=== PATIENT | female | born 1990 | race Two or more races ===

== ENCOUNTER → 2016-09-27 | Outpatient (CLI) | payer OTHER ==
--- NOTE | 2016-09-27 11:43 | REP ---
Obstetric sonography: History: Supervision of for anatomy. Findings: Scanning through the gravid uterus demonstrates a viable single intrauterine gestation in a breech lie. motion is observed and heart rate is recorded at 144 beats per minute. A posterior grade 0 placenta is seen without evidence of previa or abruption. Amniotic fluid is subjectively normal. Closed cervical length is 3.9 cm, measured transabdominally. No extrauterine abnormalities observed. There has been appropriate interval growth. No anomaly is seen. The following anatomic structures are identified and felt to be sonographically unremarkable: cranium, choroid plexus, cavum, cerebellar and posterior fossa, face and profile, lungs, four-chamber heart with left and right ventricular outflow tract views, diaphragm, left-sided stomach, abdominal wall cord insertion, three-vessel umbilical cord, kidneys and bladder, spine, upper and lower extremities. Biometry: BPD 4.1 cm = 18 weeks 2 days Head circumference 15.7 cm = 18 weeks 4 days Abdominal circumference 13.7 cm = 19 weeks 1 day Femur length 3.0 cm = 19 weeks 3 days Humeral length 3.0 cm = 20 weeks 0 days HC/AC ratio normal 1.14 cephalic index normal 0.70 estimated weight 277 grams, 0 pounds 9 ounces, 28th percentile for 19 weeks 5 days. Impression: Viable single intrauterine gestation at 19 weeks 1 day by today's composite sonographic criteria. Expected gestational age estimate based on prior sonography is 19 weeks 3 days. GALEN by prior sonography February 18, 2017. Signed by Andrew Glass MD 09/27/2016 01:37 P
== END ==
LOC: M RAD 09:51
PROVIDERS: ATTEND Nurse Practitioner Women's Health
DX: Z36 Encounter for antenatal screening of mother (principal); Z3A.19 19 weeks gestation of pregnancy

== ENCOUNTER → 2016-12-09 | Outpatient (CLI) | payer OTHER | LOC: M LAB 07:38 | DX: O99.810 Abnormal glucose complicating pregnancy (principal); Z3A.00 Weeks of gestation of pregnancy not specified ==

== ENCOUNTER → 2017-02-08 | Outpatient (CLI) | payer OTHER ==
--- NOTE | 2017-02-08 19:00 | REPUSA ---
Clinical history: decreased movement. Findings: Real-time transabdominal ultrasound imaging was performed for this biophysical profile exam ination. There is a single live intrauterine demonstrated, measuring approximately 38 weeks 4 days heart rate measures 160 bpm. Amniotic fluid index measures 12.9 cm. The cervix measures 2.6 cm in length and is closed.Normal breathing movements, body movements, and ton e are appreciated. Umbilical artery systolic/diastolic ratio measures 2.20. Resistive index measures 0.55. The placenta is at the left lateral aspect, without evidence of placenta previa or abruption. The nuchal cord was seen and is a normal position. Limited visualized anatomy is unremarkable. There is no evidence of free fluid. Impression: Biophysical profile measures 8/8, and is within normal limits.
== END ==
LOC: M RAD 17:13
PROVIDERS: ATTEND Nurse Practitioner Women's Health
DX: O36.8130 Decreased fetal movements, third trimester, not applicable or unspecified (principal); Z3A.38 38 weeks gestation of pregnancy

== ENCOUNTER 2017-04-26 12:14 | Emergency (ER) | payer OTHER ==
[~2017-04-26] VITALS: Ht 154.9 cm; Wt 76.1 kg
[2017-04-26 12:15] VITALS: BP 123/75
[2017-04-26] MEDS ORDERED: IBUP-1022 PO (12:32)
[2017-04-26] MEDS ORDERED: DICL75TA PO (14:08)
== END 2017-04-26 14:27 | disposition home or self-care (01) ==
LOC: M ED 12:14
DX: G56.01 Carpal tunnel syndrome, right upper limb (principal); F17.200 Nicotine dependence, unspecified, uncomplicated

== ENCOUNTER → 2017-04-29 | Outpatient (REF) | payer OTHER ==
[~2017-04-29] MED LIST: DICL75TA PO; IBUP-1022 PO
[2017-04-29 12:33] LABS: FREE T4 0.95 NG/DL (0.76-1.46)
== END ==
LOC: M LABDRAW1 11:24
PROVIDERS: ATTEND Orthopaedic Surgery
DX: G56.01 Carpal tunnel syndrome, right upper limb (principal)

== ENCOUNTER 2017-10-24 19:55 | Emergency (ER) | payer SELFPAY, OTHER ==
[2017-10-24 22:13] LABS: BASO % 0.5 % (0.0-1.0); EOS # 0.2 10^3/uL (0.0-0.50); EOS % 3.2 % (0.0-3.0); HEMATOCRIT 41.1 % (36.0-47.0); HEMOGLOBIN 14.1 g/dl (12.0-16.0); IMMATURE GRANULOCYTE % 0.1 % (0-3.0); LYMPH # 2.4 10^3/uL (1.5-6.5); LYMPH % 31.9 % (24.0-44.0); MEAN CORPUSCULAR HEMOGLOBIN 27.3 pg (27.0-33.0); MEAN CORPUSCULAR HGB CONC 34.3 g/dl (32.0-36.5); MEAN CORPUSCULAR VOLUME 79.7 fl (80.0-96.0); MONO # 0.4 10^3/uL (0.0-0.8); MONO % 5.1 % (0.0-5.0); NEUTROPHILS # 4.5 10^3/uL (1.8-7.7); NEUTROPHILS % 59.2 % (36.0-66.0); PLATELET COUNT, AUTOMATED 278 10^3/uL (150-450); RED BLOOD COUNT 5.16 10^6/uL (4.00-5.40); WHITE BLOOD COUNT 7.6 10^3/uL (4.0-10.0)
[2017-10-24 22:18] LABS: KETONE, URINE AUTO RFX NEGATIVE (NEGATIVE); LEUKOCYTE ESTERASE UR AUTO RFX NEGATIVE (NEGATIVE); MUCUS, URINE RFX SMALL (NEGATIVE); NITRITE, URINE AUTO RFX NEGATIVE (NEGATIVE); RBC, URINE AUTO RFX 5 /HPF (0-3); SPECIFIC GRAVITY UR AUTO RFX 1.021 (1.002-1.035); SQUAM EPITHELIAL CELL UR AURFX 2 /HPF (0-6); WBC, URINE AUTO RFX 5 /HPF (0-3)
[2017-10-24 22:36] LABS: CONTROL LINE HCG INT CTR LINE PRESENT; HCG, SERUM QUALITATIVE NEGATIVE (NEGATIVE)
[2017-10-24 22:40] LABS: ALBUMIN 4.3 GM/DL (3.2-5.2); ALBUMIN/GLOBULIN RATIO 1.34 (1.00-1.93); ALKALINE PHOSPHATASE 72 U/L (45-117); ALT/SGPT 18 U/L (12-78); AMYLASE 49 U/L (25-115); ANION GAP 8 MEQ/L (8-16); AST/SGOT 17 U/L (7-37); BILIRUBIN,DIRECT < 0.1 MG/DL (0.0-0.2); BILIRUBIN,TOTAL 0.2 MG/DL (0.2-1.0); BLOOD UREA NITROGEN 8 MG/DL (7-18); CALCIUM LEVEL 8.7 MG/DL (8.5-10.1); CARBON DIOXIDE LEVEL 29 MEQ/L (21-32); CHLORIDE LEVEL 107 MEQ/L (98-107); GLOMERULAR FILTRATION RATE > 60.0 (>60); GLUCOSE, FASTING 96 MG/DL (70-100); LIPASE 159 U/L (73-393); POTASSIUM SERUM 3.6 MEQ/L (3.5-5.1); SODIUM LEVEL 144 MEQ/L (136-145); TOTAL PROTEIN 7.5 GM/DL (6.4-8.2)
[2017-10-25] MEDS: KETOROLAC 30 MG/ML VIAL (J1885) IV (01:45)
[2017-10-25 01:49] LABS: CHLAMYDIA DNA AMPLIFICATION NEGATIVE (NEGATIVE); GC DNA AMPLIFICATION NEGATIVE (NEGATIVE)
== END 2017-10-25 02:00 | disposition home or self-care (01) ==
LOC: M ED 19:55
DX: N83.202 Unspecified ovarian cyst, left side (principal); R11.2 Nausea with vomiting, unspecified; D57.3 Sickle-cell trait; F17.200 Nicotine dependence, unspecified, uncomplicated
CPT/HCPCS: J1885

== ENCOUNTER 2022-08-22 11:43 | Emergency (ER) | payer SELFPAY ==
[~2022-08-22] VITALS: Ht 152.4 cm; Wt 55.4 kg
[~2022-08-22 11:43] MED LIST changes: +AMOX500C PO; +ETON68IM; +EXCETAB32 PO; +HYDR-3715 PO; +IMIT50TA PO; +NAPR-837 PO; +REGL10TA6 PO; +ZOFR4TAB16 PO
[2022-08-22] MEDS ORDERED: NS 1,000 ML IV ONE (12:20)
[2022-08-22] MEDS ORDERED: ONDANSETRON 4MG 2ML VIAL IV ONE (12:20)
[2022-08-22] MEDS ORDERED: MORPHINE 4 MG/ML 1ML VIAL IV ONE (12:20)
[2022-08-22 12:49] LABS: BASO % 0.3 % (0.0-1.0); EOS % 0.3 % (0.0-3.0); HEMATOCRIT 35.2 % (36.0-47.0); HEMOGLOBIN 11.9 g/dl (12.0-15.5); LYMPH # 0.2 10^3/uL (1.5-5.0); LYMPH % 2.5 % (24.0-44.0); MEAN CORPUSCULAR HGB CONC 33.8 g/dl (32.0-36.5); MEAN CORPUSCULAR VOLUME 79.8 fl (80.0-96.0); MONO # 0.7 10^3/uL (0.0-0.8); NEUTROPHILS # 5.1 10^3/uL (1.5-8.5); NEUTROPHILS % 85.2 % (36.0-66.0); PLATELET COUNT, AUTOMATED 223 10^3/uL (150-450); RED BLOOD COUNT 4.41 10^6/uL (4.00-5.40)
[2022-08-22 12:52] LABS: URINE PREG TEST NEGATIVE (NEGATIVE)
[2022-08-22 13:07] LABS: LIPASE 22 U/L (12-53)
[2022-08-22 13:09] LABS: BILIRUBIN,DIRECT 0.2 MG/DL (<0.4)
[2022-08-22 13:10] LABS: ALBUMIN 4.1 G/DL (3.2-5.2); ALKALINE PHOSPHATASE 52 U/L (46-116); ALT/SGPT < 9 U/L (7.0-40); AST/SGOT 16 U/L (<34); BILIRUBIN,TOTAL 0.5 MG/DL (0.3-1.2); BLOOD UREA NITROGEN 7 MG/DL (9-23); CALCIUM LEVEL 8.7 MG/DL (8.5-10.1); CARBON DIOXIDE LEVEL 22 MMOL/L (20-31); CHLORIDE LEVEL 103 MMOL/L (98-107); CREATININE FOR GFR 0.61 MG/DL (0.55-1.30); GLOMERULAR FILTRATION RATE > 60.0 (>60); GLUCOSE, FASTING 95 MG/DL (60-100); POTASSIUM SERUM 3.7 MMOL/L (3.5-5.1); SODIUM LEVEL 138 MMOL/L (136-145); TOTAL PROTEIN 6.7 G/DL (5.7-8.2)
[2022-08-22] MEDS ORDERED: KETOROLAC 30 MG/ML 1ML VIAL IV ONE (13:25)
[2022-08-22] MEDS ORDERED: ISOVUE-370 76% 100ML VIAL As Ordered ONE (13:35)
[2022-08-22] MEDS ORDERED: cefTRIAXone SOD 1 GM in D5W MINI-BAG PLUS 50 ML IV ONE (14:45)
[2022-08-22] MEDS ORDERED: CEFD300C41 PO (17:09)
[2022-08-22 17:15] VITALS: BP 117/75
== END 2022-08-22 17:32 | disposition home or self-care (01) ==
LOC: M ED 11:43
DX: N10 Acute pyelonephritis (principal); D25.9 Leiomyoma of uterus, unspecified; K65.4 Sclerosing mesenteritis; Z87.42 Personal history of other diseases of the female genital tract; F17.200 Nicotine dependence, unspecified, uncomplicated; Z79.82 Long term (current) use of aspirin; Z79.899 Other long term (current) drug therapy
CPT/HCPCS: 74177; 76830; 76856; 80048; 80076; 81000; 81015; 83690; 84703; 85025; 87088; 87186; 93041; 93976; 96365; 96375; 99285; J0696; J1885; J2270; J2405

== ENCOUNTER 2024-02-23 14:06 | Emergency (ER) | payer SELFPAY ==
[~2024-02-23] VITALS: Ht 152.4 cm; Wt 50.0 kg
[~2024-02-23 14:06] MED LIST changes: +CEFD1CAP9 PO
[2024-02-23 15:02] LABS: BASO % 0.6 % (0.0-1.0); EOS # 0.1 10^3/uL (0.0-0.5); EOS % 1.2 % (0.0-3.0); HEMATOCRIT 35.3 % (36.0-47.0); HEMOGLOBIN 12.3 g/dl (12.0-15.5); LYMPH # 1.4 10^3/uL (1.5-5.0); LYMPH % 21.3 % (24.0-44.0); MEAN CORPUSCULAR HEMOGLOBIN 27.9 pg (27.0-33.0); MEAN CORPUSCULAR HGB CONC 34.8 g/dl (32.0-36.5); MONO # 0.5 10^3/uL (0.0-0.8); MONO % 6.8 % (2.0-8.0); NEUTROPHILS # 4.7 10^3/uL (1.5-8.5); NEUTROPHILS % 69.8 % (36.0-66.0); PLATELET COUNT, AUTOMATED 293 10^3/uL (150-450); RED BLOOD COUNT 4.41 10^6/uL (4.00-5.40); WHITE BLOOD COUNT 6.8 10^3/uL (4.0-10.0)
[2024-02-23 18:01] LABS: CK-MB VALUE MASS < 1.0 NG/ML (<3.6)
[2024-02-23 18:02] LABS: CPK CREATINE PHOSPHOKINASE 50 U/L (34-145)
[2024-02-23] MEDS ORDERED: HYDR-643 PO (18:29)
[2024-02-23] MEDS ORDERED: OMEP-312 PO (18:30)
[2024-02-23] MEDS ORDERED: PEPC1TAB5 PO (18:30)
[2024-02-23 18:52] LABS: LIPASE 30 U/L (12-53)
[2024-02-23 18:56] LABS: ALBUMIN 3.9 G/DL (3.2-5.2); ALKALINE PHOSPHATASE 43 U/L (46-116); ALT/SGPT < 9 U/L (7.0-40); AST/SGOT < 8 U/L (<34); BILIRUBIN,DIRECT 0.2 MG/DL (<0.4); BILIRUBIN,TOTAL 0.5 MG/DL (0.3-1.2); BLOOD UREA NITROGEN 9 MG/DL (9-23); CALCIUM LEVEL 8.9 MG/DL (8.5-10.1); CARBON DIOXIDE LEVEL 24 MMOL/L (20-31); CHLORIDE LEVEL 107 MMOL/L (98-107); CREATININE FOR GFR 0.58 MG/DL (0.55-1.30); GLOMERULAR FILTRATION RATE > 60.0 (>60); GLUCOSE, FASTING 83 MG/DL (60-100); POTASSIUM SERUM 3.5 MMOL/L (3.5-5.1); SODIUM LEVEL 141 MMOL/L (136-145); TOTAL PROTEIN 6.2 G/DL (5.7-8.2)
[2024-02-23 19:04] VITALS: BP 108/66; TEMP 98.1; O2SAT 100
== END 2024-02-23 19:08 | disposition home or self-care (01) ==
LOC: M ED 14:06
DX: F41.9 Anxiety disorder, unspecified (principal); K21.9 Gastro-esophageal reflux disease without esophagitis; R51.9 Headache, unspecified; F17.200 Nicotine dependence, unspecified, uncomplicated; F12.10 Cannabis abuse, uncomplicated; Z79.82 Long term (current) use of aspirin; Z79.2 Long term (current) use of antibiotics; Z79.83 Long term (current) use of bisphosphonates; Z79.899 Other long term (current) drug therapy

== ENCOUNTER 2024-11-01 18:10 | Emergency (ER) | payer OTHER, SELFPAY ==
[~2024-11-01] VITALS: Ht 152.4 cm; Wt 53.2 kg
[~2024-11-01 18:10] MED LIST changes: +HYDR-643 PO; +OMEP-312 PO; +PEPC1TAB5 PO
[2024-11-01 18:40] LABS: BASO % 0.7 % (0.0-1.0); EOS # 0.1 10^3/uL (0.0-0.5); HEMOGLOBIN 11.5 g/dl (12.0-15.5); LYMPH # 1.5 10^3/uL (1.5-5.0); LYMPH % 26.6 % (24.0-44.0); MEAN CORPUSCULAR HEMOGLOBIN 27.8 pg (27.0-33.0); MEAN CORPUSCULAR HGB CONC 34.8 g/dl (32.0-36.5); MEAN CORPUSCULAR VOLUME 79.9 fl (80.0-96.0); MONO # 0.4 10^3/uL (0.0-0.8); MONO % 6.7 % (2.0-8.0); NEUTROPHILS # 3.5 10^3/uL (1.5-8.5); NEUTROPHILS % 63.8 % (36.0-66.0); PLATELET COUNT, AUTOMATED 261 10^3/uL (150-450); RED BLOOD COUNT 4.13 10^6/uL (4.00-5.40); WHITE BLOOD COUNT 5.5 10^3/uL (4.0-10.0)
[2024-11-01 19:08] LABS: BLOOD UREA NITROGEN 8 MG/DL (9-23); CALCIUM LEVEL 8.9 MG/DL (8.5-10.1); CARBON DIOXIDE LEVEL 25 MMOL/L (20-31); CHLORIDE LEVEL 108 MMOL/L (98-107); CREATININE FOR GFR 0.62 MG/DL (0.55-1.30); GLOMERULAR FILTRATION RATE > 60.0 (>60); GLUCOSE, FASTING 105 MG/DL (60-100); POTASSIUM SERUM 3.8 MMOL/L (3.5-5.1); SODIUM LEVEL 142 MMOL/L (136-145)
[2024-11-01 19:18] LABS: AMPHETAMINES LEVEL URINE NEGATIVE (NEGATIVE); BARBITURATES URINE NEGATIVE (NEGATIVE); BENZODIAZEPINES URINE NEGATIVE (NEGATIVE); COCAINE METABOLITE URINE NEGATIVE (NEGATIVE); METHADONE URINE NEGATIVE (NEGATIVE); OPIATES URINE NEGATIVE (NEGATIVE); PHENCYCLIDINE URINE NEGATIVE (NEGATIVE)
[2024-11-01 19:19] LABS: CANNABINOIDS URINE POSITIVE (NEGATIVE)
[2024-11-01 19:48] LABS: HEMOGLOBIN A1c 5.1 % (4.0-6.0)
[2024-11-01 21:30] VITALS: BP 105/62; O2SAT 99
[2024-11-01 21:41] VITALS: TEMP 98.1
[2024-11-01 21:50] LABS: ALBUMIN 3.8 G/DL (3.2-5.2); ALKALINE PHOSPHATASE 45 U/L (35-104); ALT/SGPT 10 U/L (7.0-40); AST/SGOT 11 U/L (<34); BILIRUBIN,DIRECT < 0.1 MG/DL (<0.4); BILIRUBIN,TOTAL 0.3 MG/DL (0.3-1.2); TOTAL PROTEIN 6.5 G/DL (5.7-8.2)
== END 2024-11-01 21:55 | disposition home or self-care (01) ==
LOC: EDBD 18:10 → M ED 18:10
DX: E16.2 Hypoglycemia, unspecified (principal); K21.9 Gastro-esophageal reflux disease without esophagitis; F17.290 Nicotine dependence, other tobacco product, uncomplicated; Z79.899 Other long term (current) drug therapy

== ENCOUNTER → 2024-11-30 | Outpatient (CLI) | payer OTHER | LOC: M PLARAD 12:56 | PROVIDERS: ATTEND Physician Assistant | DX: G43.009 Migraine without aura, not intractable, without status migrainosus (principal) ==

== ENCOUNTER 2025-05-08 09:49 | Emergency (ER) | payer OTHER ==
[~2025-05-08] VITALS: Ht 152.4 cm; Wt 52.6 kg
[~2025-05-08 09:49] MED LIST changes: -IBUP-1022 PO; +IBUP600T42 PO
[2025-05-08] MEDS ORDERED: NORT10CA2 PO (10:00)
[2025-05-08] MEDS ORDERED: TIZA2TA PO (10:00)
[2025-05-08 10:50] LABS: BASO # 0.1 10^3/uL (0.0-0.2); BASO % 0.4 % (0.0-1.0); EOS # 0.3 10^3/uL (0.0-0.5); EOS % 2.3 % (0.0-3.0); LYMPH # 1.2 10^3/uL (1.5-5.0); LYMPH % 9.7 % (24.0-44.0); MONO # 1.0 10^3/uL (0.0-0.8); MONO % 8.6 % (2.0-8.0); NEUTROPHILS # 9.4 10^3/uL (1.5-8.5); NEUTROPHILS % 78.7 % (36.0-66.0); PLATELET COUNT, AUTOMATED 308 10^3/uL (150-450)
[2025-05-08 11:12] LABS: ALT/SGPT < 9 U/L (7.0-40); AST/SGOT 21 U/L (<34); CALCIUM LEVEL 9.1 MG/DL (8.5-10.1); CARBON DIOXIDE LEVEL 22 MMOL/L (20-31); CHLORIDE LEVEL 107 MMOL/L (98-107); CREATININE FOR GFR 0.60 MG/DL (0.55-1.30); GLOMERULAR FILTRATION RATE > 90.0 (>60); POTASSIUM SERUM 4.2 MMOL/L (3.5-5.1); SODIUM LEVEL 142 MMOL/L (136-145)
[2025-05-08] MEDS ORDERED: KETOROLAC 30 MG/ML 1 ML VIAL IV ONE (11:20)
[2025-05-08 11:32] LABS: HCG, SERUM QUALITATIVE NEGATIVE (NEGATIVE)
[2025-05-08] MEDS ORDERED: ISOVUE-370 76% 100 ML VIAL As Ordered ONE (11:56)
[2025-05-08] MEDS: ACETAMINOPHEN *IV* 1,000 MG in IV 1 EA IV ONE (12:04)
[2025-05-08 13:53] LABS: KETONE, URINE AUTO RFX 1+ mg/dL (NEGATIVE); LEUKOCYTE ESTERASE UR AUTO RFX NEGATIVE (NEGATIVE); NITRITE, URINE AUTO RFX NEGATIVE (NEGATIVE); RBC, URINE AUTO RFX 47 /HPF (0-3); SQUAM EPITHELIAL CELL UR AURFX 1 /HPF (0-6); WBC, URINE AUTO RFX 0 /HPF (0-3)
[2025-05-08] MEDS ORDERED: HOME MED LIST COMPLETE! XX SCH (14:20)
[2025-05-08] MEDS ORDERED: AJOV225I SC (14:25)
[2025-05-08] MEDS: KETOROLAC 30 MG/ML 1 ML VIAL IV ONE (15:19)
[2025-05-08] MEDS ORDERED: PROHANCE 279.3MG/ML 5ML VIAL As Ordered ONE (18:39)
[2025-05-08] MEDS ORDERED: TRAM50TA2 PO (21:00)
[2025-05-08 21:29] VITALS: BP 111/66; TEMP 98; O2SAT 98
== END 2025-05-08 21:30 | disposition home or self-care (01) ==
LOC: M ED 09:49
DX: R10.2 Pelvic and perineal pain (principal); D25.1 Intramural leiomyoma of uterus; K21.9 Gastro-esophageal reflux disease without esophagitis; G43.909 Migraine, unspecified, not intractable, without status migrainosus; F12.10 Cannabis abuse, uncomplicated; Z79.899 Other long term (current) drug therapy
CPT/HCPCS: 72197; 74177; 80048; 80076; 81001; 83690; 84703; 85025; 93041; 96365; 96366; 96375; 99285; A9576; J0131; J1885; Q9967

== ENCOUNTER → 2025-05-10 | Outpatient (CLI) | payer OTHER ==
[~2025-05-10] MED LIST changes: +AJOV225I SC; +NORT10CA2 PO; +TIZA2TA PO; +TRAM50TA2 PO
[2025-05-10 10:23] LABS: BASO # 0.0 10^3/uL (0.0-0.2); BASO % 0.6 % (0.0-1.0); EOS # 0.2 10^3/uL (0.0-0.5); EOS % 2.4 % (0.0-3.0); LYMPH # 0.7 10^3/uL (1.5-5.0); LYMPH % 9.8 % (24.0-44.0); MONO # 0.5 10^3/uL (0.0-0.8); MONO % 6.9 % (2.0-8.0); NEUTROPHILS # 5.7 10^3/uL (1.5-8.5); NEUTROPHILS % 79.9 % (36.0-66.0); PLATELET COUNT, AUTOMATED 322 10^3/uL (150-450)
[2025-05-10 10:53] LABS: ALT/SGPT < 9 U/L (7.0-40); AST/SGOT 19 U/L (<34); CALCIUM LEVEL 8.9 MG/DL (8.5-10.1); CARBON DIOXIDE LEVEL 28 MMOL/L (20-31); CHLORIDE LEVEL 105 MMOL/L (98-107); CREATININE FOR GFR 0.61 MG/DL (0.55-1.30); GLOMERULAR FILTRATION RATE > 90.0 (>60); POTASSIUM SERUM 4.3 MMOL/L (3.5-5.1); SODIUM LEVEL 142 MMOL/L (136-145)
== END ==
LOC: M LAB 09:49
PROVIDERS: ATTEND Physician Assistant
DX: D39.8 Neoplasm of uncertain behavior of other specified female genital organs (principal)

== ENCOUNTER → 2025-05-15 | Outpatient (CLI) | payer OTHER | LOC: M RAD 10:44 | PROVIDERS: ATTEND Physician Assistant | DX: D39.8 Neoplasm of uncertain behavior of other specified female genital organs (principal) ==

== ENCOUNTER → 2025-06-25 | Outpatient (CLI) | payer OTHER ==
[2025-06-25 13:14] LABS: FREE T4 1.26 NG/DL (0.89-1.76)
== END ==
LOC: M WUC 09:43
PROVIDERS: ATTEND Obstetrics & Gynecology Obstetrics
DX: N93.9 Abnormal uterine and vaginal bleeding, unspecified (principal); R10.23 Pelvic and perineal pain bilateral